=== PATIENT | female | born 1970 | race Caucasian/White ===

== ENCOUNTER 2020-02-03 10:18 | Outpatient (REF) | payer BC, SELFPAY ==
[2020-02-03 11:10] LABS: Lithium 1.05 mmol/L (0.60-1.20)
[2020-02-03 11:13] LABS: Alanine Aminotransferase 73 U/L (0-31); Albumin Level 4.7 g/dL (3.5-5.0); Alkaline Phosphatase 99 U/L (39-117); Aspartate Amino Transferase 29 U/L (5-31); Bilirubin Direct < 0.2 mg/dL (0.0-0.5); Bilirubin Total 0.4 mg/dL (0.0-1.0); Calcium 10.5 mg/dL (8.4-10.2); Estimated Glomerular Filt Rate 58; Total Protein 7.6 g/dL (6.5-8.0)
[2020-02-05 16:03] LABS: Calcium (PTHI) 10.4 mg/dL (8.6-10.4); PTHI 67 pg/mL (14-64)
== END 2020-02-03 10:19 | disposition home or self-care (01) ==
LOC: HO.LAB 10:18
PROVIDERS: PCP Internal Medicine; Visit Provider Psychiatry & Neurology Psychiatry
DX: F31.74 Bipolar disorder, in full remission, most recent episode manic (principal)
CPT/HCPCS: 80076; 80178; 82310; 82565; 83970